=== PATIENT | female | born 1995 | race Caucasian/White ===

== ENCOUNTER 2022-05-28 21:52 | Emergency (ER) | payer MEDICAID ==
[~2022-05-28] VITALS: Ht 175.3 cm; Wt 122.9 kg
[2022-05-28 21:57] VITALS: BP_SYST 130
[2022-05-28] MEDS ORDERED: KETOROLAC TROMETHAMINE 60 MG/2 ML VIAL IM ONE (22:15)
[2022-05-28 22:48] LABS: BILIRUBIN,URINE NEGATIVE (NEGATIVE); BLOOD, URINE NEGATIVE (NEGATIVE); COLOR,URINE YELLOW (YELLOW); GLUCOSE,URINE NEGATIVE (NEGATIVE); KETONES,URINE TRACE (NEGATIVE); LEUKOCYTE ESTERASE ,URINE NEGATIVE (NEGATIVE); NITRITE, URINE NEGATIVE (NEGATIVE); PH,URINE 5.5 (5.0-8.0); PROTEIN URINE NEGATIVE (NEGATIVE); UROBILINOGEN,URINE 0.2 (0.2-1.0)
[2022-05-28 23:27] LABS: CLARITY/URINE HAZY (CLEAR)
[2022-05-28] MEDS ORDERED: MORPHINE 4 MG INJ. 4 MG/ML VIAL IM ONE (23:30)
[2022-05-29 00:46] LABS: BASOPHILS % (AUTO) 0.4 % (0.0-2.0); EOSINOPHILS # (AUTO) 0.1 K/uL (0.0-0.4); EOSINOPHILS % (AUTO) 1.2 % (0.0-4.0); HEMOGLOBIN 12.9 g/dL (12.0-16.0); LYMPHOCYTES # (AUTO) 2.1 K/uL (1.0-5.5); LYMPHOCYTES % (AUTO) 24.8 % (20.5-51.5); MEAN CORPUSCULAR HEMOGLOBIN 30 pg (27-31); MEAN CORPUSCULAR HGB CONC 33 % (32-36); MEAN CORPUSCULAR VOLUME 90 fL (79.0-98.0); MONOCYTES # (AUTO) 0.6 K/uL (0.0-1.0); NEUTROPHILS # (AUTO) 5.8 K/uL (1.8-7.7); NEUTROPHILS % (AUTO) 66.6 % (40.0-70.0); PLATELET COUNT (AUTO) 191 K/uL (130-430); RED BLOOD CELL COUNT(AUTO) 4.35 MIL/uL (4.2-6.2); RED CELL DISTRIBUTION WIDTH 14.3 % (9.0-15.0); WHITE BLOOD COUNT (AUTO) 8.6 K/uL (4.8-10.8)
[2022-05-29 01:00] LABS: CALCIUM 8.2 mg/dL (8.4-11.0); CREATININE 0.62 mg/dL (0.55-1.30)
[2022-05-29] MEDS ORDERED: NACL 0.9% 1,000 ML IV ONE (01:00)
[2022-05-29 01:05] LABS: ALBUMIN 3.6 g/dL (3.4-4.8); TOTAL BILIRUBIN 0.2 mg/dL (0.0-1.0)
[2022-05-29 12:30] VITALS: BP_SYST 134
[2022-05-29] MEDS ORDERED: MORPHINE 4 MG INJ. 4 MG/ML VIAL IVP ONE (12:30)
[2022-05-29] MEDS ORDERED: ONDANSETRON HCL 4 MG/2 ML VIAL ONE (12:39)
[2022-05-29] MEDS ORDERED: HYDR-3917 PO (12:54)
[2022-05-29] MEDS ORDERED: ONDA8TAB60 PO (12:54)
[2022-05-29] MEDS ORDERED: IBUP-1971 PO (12:54)
[2022-05-29] MEDS ORDERED: ONDANSETRON HCL 4 MG/2 ML VIAL IVP ONE (13:00)
== END 2022-05-29 13:00 | disposition home or self-care (01) ==
LOC: SED 21:52
DX: M54.50 Low back pain, unspecified (principal); M48.061 Spinal stenosis, lumbar region without neurogenic claudication; M79.661 Pain in right lower leg; Z79.899 Other long term (current) drug therapy; Z20.822 Contact with and (suspected) exposure to COVID-19
CPT/HCPCS: 99285; 72131; 87426; 80053; 85025; 36415; 76376; 96372; 81003; 72148; 96374; 96361; 96375; J1885; J2270 ×2; J2405; J7030